=== PATIENT | female | born 1990 | race Caucasian/White ===

== ENCOUNTER 2020-08-22 09:17 | Emergency (ER) | payer BC, SELFPAY ==
--- NOTE | ~2020-08-22 | US_ITS ---
EXAMINATION: US OB <=14 wk fetus w TV EXAM DATE: 08/22/2020 10:26 INDICATION: , vaginal bleeding. 1st trimester. TECHNIQUE: Pelvic obstetrical transabdominal and transvaginal sonogram was performed by a technologi . There are multiple grayscale and Doppler images available for interpretation. There are no hudson ier studies of this gestation for comparison. FINDINGS: Uterus measures 8.2 x 3.6 x 5.0 cm. The endometrial stripe is 18 mm, upper limits of normal in size. No intrauterine or extrauterine identified. Early intrauterine or recen t spontaneous are common causes of elevated beta hCG in absence of intrauterine co nfirmation. Ultrasound can sometimes identify, but never exclude an ectopic in the setting of positive beta hCG. Follow up as warranted clinically with serial beta hCG levels or ultrasound. Both ovaries morphologically normal with low resistance Doppler flow confirmed. IMPRESSION: No intrauterine or extrauterine identified. Follow-up as indicated clinically. Reviewed, dictated and finalized at location A.
[2020-08-22 09:29] VITALS: BP 132/72; PULSE 105; RESP 20; TEMP 37.2; O2SAT 100
[2020-08-22 10:04] LABS: Basophils Percent Auto 0.4 % (0.2-1.2); Eosinophils Percent Auto 0.5 % (0-4.4); Hematocrit 41.5 % (37.0-47.0); Hemoglobin 13.9 g/dL (12.0-15.0); Immature Granulocyte Absolute 0.01 K/mm3 (0.00-0.031); Immature Granulocyte Percent A 0.1 % (0-0.5); Lymphocytes Absolute Auto 1.59 K/mm3 (0.9-3.2); Lymphocytes Percent Auto 21.1 % (18.3-44.2); Mean Corpuscular HGB Conc 33.5 g/dl (32-36); Mean Corpuscular Hemoglobin 33.7 pg (26-34); Mean Corpuscular Volume 100.5 fl (80-100); Mean Platelet Volume 10.5 fl (7.4-10.4); Monocytes Absolute Auto 0.8 K/mm3 (0.1-0.6); Monocytes Percent Auto 10.1 % (2.6-8.5); Neutrophils Absolute Auto 5.1 K/mm3 (1.3-6.7); Neutrophils Percent Auto 67.8 % (45.5-73.1); Platelet Count Result 245 k/mm3 (150-375); Red Blood Count 4.13 M/mm3 (4.2-5.4); Red Cell Distribution Width 11.5 % (11.5-14.5); White Blood Count 7.5 K/mm3 (4.5-10.0)
[2020-08-22 10:13] LABS: Anion Gap 10 mmol/L (8-16); Blood Urea Nitrogen 12 mg/dL (7-17); Calcium 9.6 mg/dL (8.4-10.2); Carbon Dioxide 24 mmol/L (22-30); Chloride 108 mmol/L (98-107); Estimated CRCL calculation 99 ml/min; Estimated Glomerular Filt Rate > 60; Glucose 90 mg/dL (65-105); Potassium 3.7 mmol/L (3.4-5.0); Sodium 142 mmol/L (137-145)
[2020-08-22 10:30] LABS: Beta HCG Quantitative 218.85 mIU/ML
--- NOTE | 2020-08-22 10:33 | ED.FEMALEGU ---
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 Patient reports she has been having some heavier bleeding since yesterday afternoon after receiving a Pap smear at her OBs office. She went to see her OB to establish care as she recently found that she is . Reports she is approximately 6 weeks gestation. No vaginal discharge/dysuria/urinary frequency/urgency. She does feel that she has been having some suprapubic cramping related to this. Related Data Home Medications Medication Instructions Recorded Confirmed prenat.vits,talia,[id number] 1 tablet PO DAILY 08/21/20 Allergies Allergy/AdvReac Type Severity Reaction Status Date / Time No Known Allergies Allergy Verified 08/22/20 09:32 Review of Systems Review of Systems: All systems reviewed & are unremarkable except as noted in HPI and below Gastrointestinal: Gastrointestinal: Denies abdominal pain, Denies nausea and Denies vomiting Genitourinary: Genitourinary: Reports abnormal vaginal bleeding, Denies hematuria, Denies dysuria, Reports pelvic pain and Denies vaginal discharge PMFSH Past Medical History Medical History (Updated 08/22/20 @ 11:51 by Shakir Aarno MD) Anemia Osteonecrosis of knees Surgical History Surgical History H/O arthroscopy of knee H/O ovarian cystectomy History of cholecystectomy [place] teeth removed Family History Family History Mother Diabetes mellitus Hypertension Grandparent Diabetes mellitus Acute myocardial infarction Hypertension Cerebrovascular accident Social History Social History Smoking status: Never smoker Alcohol intake: current Drinks per week: 5 Substance use: never Gender identity (if verbalized by the patient): Female Exam Narrative: Exam Narrative: GENERAL: Well-appearing, well-nourished, and in no acute distress. HEAD: Normocephalic, atraumatic. ENT: Mucous membranes moist. CHEST: Clear to auscultation. No respiratory distress. HEART: Regular rate and rhythm. Normal peripheral pulses. ABDOMEN: Soft, nontender, nondistended. : Normal external genitalia. Cervix without evidence of active bleeding. Cervical os has a bloody mucus-like material that likely represents passage of . No other discharge. No tenderness. EXTREMITIES: Normal range of motion. No edema. NEURO: Alert and oriented x3. PSYCH: Normal mood and affect. Course Course Emergency Course: Patient informed of results. Educated on diagnosis and treatment plan. Verbalized understanding that she needs follow-up blood work and that this may be a miscarriage but is being labeled as a spontaneous miscarriage. Dr. Ott who is on-call for Dr. Pinto has been contacted and has developed the treatment plan. Patient A+ and does not require RhoGam. Vital Signs Vital signs: Vital Signs Temperature 98.9 F 08/22/20 09:29 Pulse Rate 105 H 08/22/20 09:29 Respiratory Rate 20 08/22/20 09:29 Blood Pressure 132/72 08/22/20 09:29 Pulse Oximetry 100 08/22/20 09:29 Temperature 98.9 F 08/22/20 09:29 Pulse Rate 105 H 08/22/20 09:29 Respiratory Rate 20 08/22/20 09:29 Blood Pressure 132/72 08/22/20 09:29 Pulse Oximetry 100 08/22/20 09:29 MDM - Female Genitourinary Lab Data Result diagrams: 08/22/20 09:58 08/22/20 09:58 Labs: Lab Results 08/22/20 08/22/20 08/22/20 Range/Units 09:58 09:58 09:58 WBC 7.5 (4.5-10.0) K/mm3 RBC 4.13 L (4.2-5.4) M/mm3 Hgb 13.9 (12.0-15.0) g/dL Hct 41.5 (37.0-47.0) % MCV 100.5 H (80-100) fl MCH 3
[2020-08-22 11:17] LABS: Add Urine Microscopic? YES; Appearance Urine Clear (Clear); Bilirubin Urine Negative (Negative); Blood Urine 3+ (Negative); Color Urine Straw (Yellow); Glucose Urine UA Negative (Negative); Ketones Urine Negative (Negative); Leukocyte Esterase Ur Trace LEU/UL (Negative); Nitrate Urine Negative (Negative); Protein Urine Negative (Negative); Specific Grav Ur 1.006 (1.001-1.035); Squamous Epithelial Cell Urine Few /hpf (Few); Urobilinogen Urine Negative mg/dL (<2.0); WBC Urine 0-3 /hpf
[2020-08-22 11:59] VITALS: BP 134/88; PULSE 88; RESP 20; O2SAT 100
== END 2020-08-22 12:02 | disposition home or self-care (01) ==
PROVIDERS: Emergency Provider Emergency Medicine
DX: O20.0 Threatened abortion (principal); Z86.2 Personal history of diseases of the blood and blood-forming organs and certain disorders involving the immune mechanism; Z3A.01 Less than 8 weeks gestation of pregnancy
CPT/HCPCS: 36415; 76801; 76817; 80048; 81001; 84702; 85025; 85461; 99284

== ENCOUNTER 2020-08-24 17:01 | Outpatient (CLI) | payer BC, SELFPAY ==
[2020-08-24 17:48] LABS: Beta HCG Quantitative 32.55 mIU/ML
== END 2020-08-24 17:02 | disposition home or self-care (01) ==
PROVIDERS: Visit Provider Student in an Organized Health Care Education/Training Program
DX: O03.9 Complete or unspecified spontaneous abortion without complication (principal)
CPT/HCPCS: 36415; 84702

== ENCOUNTER 2020-09-07 15:32 | Outpatient (RCR) | payer BC, SELFPAY ==
[2020-09-07 16:20] LABS: Beta HCG Quantitative < 2.39 mIU/ML
== END 2020-12-06 23:59 | disposition home or self-care (01) ==
LOC: ANHLAB 15:32
PROVIDERS: Visit Provider Student in an Organized Health Care Education/Training Program
DX: O03.9 Complete or unspecified spontaneous abortion without complication (principal)
CPT/HCPCS: 36415; 84702

== ENCOUNTER 2020-12-28 15:26 | Outpatient (CLI) | payer BC, SELFPAY ==
[2020-12-28 16:24] LABS: Beta HCG Quantitative 43.03 mIU/ML
[2020-12-31 04:39] LABS: Progesterone 13.9 ng/mL (***)
== END 2020-12-28 15:27 | disposition home or self-care (01) ==
PROVIDERS: Visit Provider Student in an Organized Health Care Education/Training Program
DX: Z34.90 Encounter for supervision of normal pregnancy, unspecified, unspecified trimester (principal)
CPT/HCPCS: 36415; 84144; 84702

== ENCOUNTER 2020-12-30 15:24 | Outpatient (CLI) | payer BC, SELFPAY ==
[2020-12-30 16:22] LABS: Beta HCG Quantitative 86.99 mIU/ML
== END 2020-12-30 15:25 | disposition home or self-care (01) ==
LOC: ANHLAB 15:25
PROVIDERS: Visit Provider Student in an Organized Health Care Education/Training Program
DX: Z34.90 Encounter for supervision of normal pregnancy, unspecified, unspecified trimester (principal)
CPT/HCPCS: 36415; 84702

== ENCOUNTER 2021-01-07 15:38 | Outpatient (CLI) | payer BC, SELFPAY | END 2021-01-07 15:39 | disposition home or self-care (01) | LOC: ANHLAB 15:39 | PROVIDERS: Visit Provider Student in an Organized Health Care Education/Training Program | DX: O36.80X0 Pregnancy with inconclusive fetal viability, not applicable or unspecified (principal); Z3A.00 Weeks of gestation of pregnancy not specified | CPT/HCPCS: 36415; 84702 ==

== ENCOUNTER 2021-01-11 11:56 | Outpatient (CLI) | payer BC, SELFPAY ==
--- NOTE | ~2021-01-11 | US_ITS ---
EXAMINATION: US OB <=14 wk fetus w TV EXAM DATE: 01/11/2021 12:46 INDICATION: O20.0 - Threatened . 1st trimester. TECHNIQUE: Pelvic obstetrical transabdominal and transvaginal sonogram was performed by a technologi . There are multiple grayscale and Doppler images available for interpretation. There are no hudson ier studies of this gestation for comparison. FINDINGS: Uterus measures 9.0 x 4.1 x 4.5 cm. There is intrauterine gestation sac. The mean sac duane meter of 6 mm corresponds to estimated gestational age 5 weeks 1 day. There is tiny yolk sac, but can not identify pole or confirm viability at this date. There is no sonographic evidence of subcho rionic hemorrhage. Mildly heterogeneous endometrium at lower uterine segment, nonspecific. The left ovary likely has corpus luteal cyst measuring 2 cm. Right ovary unremarkable. IMPRESSION: Intrauterine gestation sac, age by ultrasound 5 weeks 1 day. Cannot confirm pole or viability at this time. Reviewed, dictated and finalized at location A.
== END 2021-01-11 11:57 | disposition home or self-care (01) ==
LOC: ANHIMG 11:59
PROVIDERS: Visit Provider Student in an Organized Health Care Education/Training Program
DX: O20.0 Threatened abortion (principal); Z3A.01 Less than 8 weeks gestation of pregnancy
CPT/HCPCS: 76801; 76817

== ENCOUNTER 2021-01-11 13:13 | Outpatient (CLI) | payer BC, SELFPAY | END 2021-01-11 13:14 | disposition home or self-care (01) | PROVIDERS: Visit Provider Student in an Organized Health Care Education/Training Program | DX: O20.0 Threatened abortion (principal) | CPT/HCPCS: 36415; 84702 ==

== ENCOUNTER → 2021-01-19 13:50 | Outpatient (CLI) | payer BC, SELFPAY ==
--- NOTE | ~2021-01-19 | US_ITS ---
EXAMINATION: US OB <=14 wk fetus w TV EXAM DATE: 01/19/2021 14:38 INDICATION: O20.0 - Threatened 1st trimester. TECHNIQUE: Pelvic obstetrical transabdominal and transvaginal sonogram was performed by a technologi . There are multiple grayscale and Doppler images available for interpretation. Comparison is made to prior examination from 01/11/2021. FINDINGS: Uterus measures 7.6 x 4.2 x 4.9 cm. There is intrauterine gestation sac containing a yolk sac, increase in size of both. Possible tiny pole along the sac measuring 2 mm corresponding to estimated gestational age 5 weeks 5 days. Cannot confirm viability at this time. There is no sonogra phic evidence of subchorionic hemorrhage. Ovaries are morphologically normal. Small free pelvic flu id. IMPRESSION: Increase in size of gestational sac, possible identification of tiny pole but senthil ot confirm viability at this time. Reviewed, dictated and finalized at location A. DRIVER IMPRESSION: Increase in size of gestational sac, possible identification of ti ny pole but cannot confirm viability at this time.
== END ==
PROVIDERS: Visit Provider Student in an Organized Health Care Education/Training Program
DX: O20.0 Threatened abortion (principal); Z3A.00 Weeks of gestation of pregnancy not specified
CPT/HCPCS: 76801; 76817

== ENCOUNTER → 2021-01-28 14:00 | Outpatient (CLI) | payer BC, SELFPAY ==
--- NOTE | ~2021-01-28 | US_ITS ---
EXAMINATION: US OB <=14 wk fetus w TV DATE: 01/28/2021 14:49 INDICATION: Threatened during first trimester of TECHNIQUE: Real-time pelvic ultrasound utilizing both a transvaginal and transabdominal probe was pe rformed. The interpreting radiologist was not present for the study. COMPARISON: None. FINDINGS: The uterus measures 8.9 x 4.6 x 5.1 cm. There is an intrauterine gestational sac. A yolk sac and fet al pole are identified. The crown rump length measures 3 mm, which correlates with an estimated gesta tional age of 6 weeks and 0 days. No discernible heart motion by M-mode Doppler. 1.6 x 1.2 x 0. 7 cm hypoechoic subchorionic hematoma along the left side of the gestational sac. The right ovary measures 2.3 x 1.1 x 2.8 cm. 1.6 cm right ovarian cyst/follicle. The left ovary measu res 2.6 x 1.5 x 2.0 cm. There is no free fluid in the pelvis. IMPRESSION: 1. Single fetus with crown-rump length of 3 mm with no discernible heart motion 9 days followin g ultrasound demonstrating a gestational sac with yolk sac but without a definitive pole. Findi ngs are suspicious but not diagnostic of failed and an early viable remains a pos sibility. 2. Gestational age by ultrasound of 6 weeks 0 day(s) +/- 4 day(s) with ultrasound estimated date of delivery (NANCY) of 09/23/2021. Reviewed, dictated and finalized at location A. 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 Single fetus with crown-rump length of 3 mm with no discernible heart motion 9 days following ultrasound demonstrating a gestational sac with yolk sa c but without a definitive pole. Findings are suspicious but not diagnost ic of failed and an early viable remains a possibility. 2. Gestational age by ultrasound of 6 weeks 0 day(s) +/- 4 day(s) with ultraso und estimated date of delivery (NANCY) of 09/23/2021.
== END ==
PROVIDERS: Visit Provider Student in an Organized Health Care Education/Training Program
DX: O20.0 Threatened abortion (principal); Z3A.01 Less than 8 weeks gestation of pregnancy
CPT/HCPCS: 76801; 76817

== ENCOUNTER 2021-02-02 09:58 | Outpatient (CLI) | payer BC, SELFPAY ==
--- NOTE | ~2021-02-02 | US_ITS ---
EXAMINATION: US OB <=14 wk fetus w TV DATE: 02/02/2021 11:19 INDICATION: Unspecified hemorrhage in first trimester . TECHNIQUE: Real-time pelvic ultrasound utilizing both a transvaginal and transabdominal probe was pe rformed. The interpreting radiologist was not present for the study. COMPARISON: 01/28/2021 FINDINGS: The uterus measures 8.4 x 5.7 x 3.8 cm. There is an intrauterine gestational sac. A yolk sac and fet al pole are identified. The crown rump length measures 3 mm, which correlates with an estimated gesta tional age of 6 weeks and 0 days. There is no evident heart motion by M-mode Doppler which now meet criteria for demise (no heart motion post ultrasound greater than 11 days prior demo nstrated a gestational sac with yolk sac). Nearly indiscernible thin weblike septations in the gestat ional sac. There is also heterogeneous decreased echogenicity within the endometrial canal surroundin g the gestational sac suspicious for subchorionic hematoma. The right ovary measures 2.4 x 1.7 x 1.2 cm. The left ovary measures 2.5 x 2.3 x 1.8 cm. Vascular ramo w identified in both ovaries on color Doppler. Trace amount of free fluid along the uterus. IMPRESSION: 1. demise with no change in a 3 mm pole with no discernible heart motion [address] ultrasound demonstrating a gestational sac with yolk sac which meets criteria for demise. 2. Likely circumferential subchorionic hematoma surrounding the gestational sac. Reviewed, dictated and finalized at location A. F SOLUTION ARCHITECT IMPRESSION: 1. demise with no change in a 3 mm pole with no discernible h eart motion 14 days post ultrasound demonstrating a gestational sac with yolk s ac which meets criteria for demise. 2. Likely circumferential subchorionic hematoma surrounding the gestational sac .
== END 2021-02-02 09:59 | disposition home or self-care (01) ==
LOC: ANHIMG 10:00
PROVIDERS: Visit Provider Student in an Organized Health Care Education/Training Program
DX: O20.9 Hemorrhage in early pregnancy, unspecified (principal)
CPT/HCPCS: 76801; 76817

== ENCOUNTER 2021-02-03 01:40 | Day surgery (SDC) | payer BC, SELFPAY ==
[2021-02-01 13:59] VITALS: BMI 24.0
--- NOTE | 2021-02-01 14:33 | PC.NURSE ---
Addendum entered by Nel Alexander RN 02/02/21 12:42: PT INFORMED OF NEW SURGERY DATE OF 02/03/21. PT TO BE HERE AT 0630 FOR SURGERY AT 0830. Original Note: Report to the Outpatient Waiting Room, entrance under the green pavilion located off [facility], at time 10:00 on date 02/09/2021. OR Time: 12:00. - You and your visitor will be asked a series of questions to screen for COVID 19 for your protection. - A mask is required within the hospital. - Only one visitor is allowed at this time. Patient visitors will be guided where to wait when not with patient. Preoperative COVID Testing Requirements:PT VACCINATED, PT TO BRING CARD AT TIME OF PROCEDURE. No COVID Test needed if: (proof is required; if not received patient will have Rapid Test prior to entry) - Patient has received COVID Vaccine at least 14 days prior to procedure date or - Patient has positive COVID test result within last 90 days of surgery date. COVID Test needed if above criteria is not met If not COVID vaccinated a COVID test must be conducted within 72 hours of surgery and patient is asked to isolate self from time of testing until procedure. You will go to the [facility] for your COVID testing. The [facility] site is located at the corner of [address] from [facility]. You will only be called if COVID results are positive and your surgeon may reschedule your elective surgery date. Patients may have clear liquids (water, carbonated beverages, clear teas, apple juice) until 3 hours prior to surgery with a maximum of 20 ounces. - No food from midnight until time of surgery - Infants may have breast milk until 4 hours before surgery, infant formula 6 hours prior to surgery. - Children will be allowed to drink immediately following surgery. If applicable, please bring a bottle or sippy cup to assist with drinking. Juice, water, soda, and popsicles are readily available. For infants on formula, please bring formula the day of surgery. Pacifiers are allowed. Take the following medications with a SIP of water the morning of surgery: N/A Medications to discontinue per physician N/A Date to take last dose N/A Please no make-up, nail chinese, hairspray, perfume, deodorant, or body powder the day of surgery. No jewelry (including any body piercings) or valuables the day of surgery, leave them at home. Please take a shower or bath the night before, or the morning of, surgery with an antibacterial soap. Wear comfortable, loose fitting clothing. Children are encouraged to wear pajamas. - Jewelry must be removed prior to entering the operating room. Rings and piercings that are not removed may be cut off. - The hospital will not accept responsibility for valuables. - Please leave all valuables, including medications, at home the day of surgery. If you are going home after surgery, a licensed lease purchase driver must drive you home. - NO public transportation without another adult. - We recommend that an adult stay with you for 24 hours following discharge. - We also recommend that you do not drive, make important decision, drink alcoholic beverages, or take any drugs that were not prescribed by your health care provider for at least 24 hours after your discharge time. For Pediatric surgeries, we recommend two adults accompany the child home (only one inside the building at this time). Follow any additional instructions given to you from your surgeon. Telephone instructions given to ALMA OSUNA and asked if any additional questions and then verbalized understanding. Patient advised to call surgeon office or pre surgery nurse liaison [phone] if any additional questions.
--- NOTE | 2021-02-02 12:13 | PM.IMHP ---
H&P: HPI History of Present Illness Date/Time: 02/02/21 12:13 Patient is a 30yo LMP 12/02/20 who presents for a scheduled suction dilation and curettage secondary to miscarriage. Patient has been followed for the past few weeks for possible abnormal . Ultrasound yesterday confirmed findings diagnostic of failure. Patient also reported onset of minimal spotting and cramping three days ago. However, in general, reports feeling well today. Chief Complaint: Missed Review of Systems Review of Systems: All systems reviewed & are unremarkable except as noted in HPI and below Constitutional: Constitutional: Reports as per HPI, Reports no additional constitutional complaints, Denies chills, Denies fever(s), Denies headache(s) and Denies night sweats Eyes: Eyes: Reports as per HPI and Reports no additional eye complaints ENT: Reports system reviewed and no additional complaints, except as documented, Reports as per HPI, Reports Normal hearing present and Denies headache(s) Cardiovascular: Cardiovascular: Reports as per HPI, Reports no additional cardiovascular complaints, Denies chest pain and Denies dyspnea Respiratory: Respiratory: Reports as per HPI, Reports no additional respiratory complaints, Denies cough and Denies dyspnea Gastrointestinal: Gastrointestinal: Reports as per HPI, Reports no additional gastrointestinal complaints, Denies abdominal pain, Denies change in bowel habits, Denies change in stool character, Denies nausea and Denies vomiting Genitourinary: Genitourinary: Reports no additional female genitourinary complaints, Reports as per HPI, Reports abnormal vaginal bleeding, Denies genital lesions, Denies hot flashes, Denies dyspareunia, Denies pelvic pain, Denies sexual dysfunction, Denies urinary incontinence, Denies vaginal discharge, Denies vaginal dryness and Denies vaginal odor Musculoskeletal: Musculoskeletal: Reports no additional musculoskeletal complaints and Reports as per HPI Integumentary/Breasts: Skin/Breast: Reports system reviewed and no additional complaints, except as docu, Reports as per HPI, Denies breast pain and Denies nipple discharge Neurologic: Reports system reviewed and no additional complaints, except as documented, Reports as per HPI, Reports Normal hearing present and Denies headache(s) Psychiatric: Psychiatric: Reports no additional psychiatric complaints, Reports as per HPI, Denies anxiety and Denies depression Endocrine: Endocrine: Reports no additional endocrine complaints and Reports as per HPI Hematologic/Lymphatic: Hematologic/Lymphatic: Reports no additional hematologic/lymphatic complaints and Reports as per HPI Allergic/Immunologic: Allergic/Immunologic: Reports no additional allergic/immunologic complaints and Reports as per HPI PMFSH Past Medical History Medical History Anemia Miscarriage Osteonecrosis of knees Surgical History Surgical History H/O arthroscopy of knee H/O ovarian cystectomy History of cholecystectomy [place] teeth removed Family History Family History Mother Diabetes mellitus Hypertension Grandparent Diabetes mellitus Acute myocardial infarction Hypertension Cerebrovascular accident Social History Social History Years smoked: 5 Smoking status: Never smoker Alcohol intake: current Drinks per week: 5 Substance use: never Last use: 7 YEARS AGO Living arrangements: with family Gender identity (if verbalized by the patient): Female Spiritual care concerns: No Meds Home Medications and Allergies Home Medications Medication Instructions Recorded Confirmed Type No Home Medications 02/01/21 02/03/21 History Allergies Allergy/AdvReac Type Severity Reaction Statu
[2021-02-03] MEDS: ACETAMINOPHEN 500 MG TABLET 1000 MG PO (06:57)
[2021-02-03 07:00] VITALS: BP 103/59; PULSE 87; RESP 16; TEMP 37.3; O2SAT 100
[2021-02-03] MEDS: LACTATED RINGERS 1,000 ML 30 ML IV CONT (07:15)
[2021-02-03] MEDS: DOXYCYCLINE IV 100 MG in SODIUM CHLORIDE 0.9% IV 100 ML IVPB (07:45)
--- NOTE | 2021-02-03 07:49 | P.PNAN_ITS ---
Anes - Initial Pre Proc Eval Procedure: Operation Date: 02/03/21 08:30 Proposed Procedures p Suction Dilatation and Curettage - Rula Pinto MD Date/Time: 02/03/21 07:49 Surgeon: Rula Pinto MD Pre Op Diagnosis: missed AB Patient Data Age: 30 Gender: F Height: 1.6 m Weight: 63.2 kg Last Vital Signs Temp 37.3 C 02/03/21 07:00 Pulse 87 02/03/21 07:00 Resp 16 02/03/21 07:00 BP 103/59 L 02/03/21 07:00 Pulse Ox 100 02/03/21 07:00 Allergies Allergy/AdvReac Type Severity Reaction Status Date / Time No Known Allergies Allergy Verified 02/03/21 07:36 Home Medications Medication Instructions Recorded Confirmed Type No Home Medications 02/01/21 02/03/21 History Patient hx anesthesia problems: none Family hx anesthesia problems: none Results Review: All pre-operative results and documents have been reviewed as part of the pre-operative evaluation. [facility] Past Medical History Medical History Anemia Miscarriage Osteonecrosis of knees Surgical History Surgical History H/O arthroscopy of knee H/O ovarian cystectomy History of cholecystectomy [place] teeth removed Family History Family History Mother Diabetes mellitus Hypertension Grandparent Diabetes mellitus Acute myocardial infarction Hypertension Cerebrovascular accident Social History Social History Years smoked: 5 Smoking status: Never smoker Alcohol intake: current Drinks per week: 5 Substance use: never Last use: 7 YEARS AGO Living arrangements: with family Gender identity (if verbalized by the patient): Female Spiritual care concerns: No Anes - Eval Final PreProcedure Day of Procedure 02/03/21 07:49 Patient weight: normal Heart: regular rate and rhythm Lungs: clear to auscultation Airway: Mallampati scale class II Neurological: alert and oriented Last oral intake: >/= 8 hours ASA classification: II Emergent: no Anesthetic plan: proceed Anesthesia type and monitoring: general GIVS and standard monitoring Results Review: All pre-operative results and documents have been reviewed as part of the pre-operative evaluation. Informed Consent: The patient's anesthetic plan and its attendant risks and benefits were discussed with the patient/family/POA. Questions were solicited and answers provided to the satisfaction of the patient/family/POA.
--- NOTE | 2021-02-03 08:18 | WPDHPUPDATE1 ---
History and Physical Update Update Date/Time: 02/03/21 08:18 History and Physical has been reviewed, including an updated exam of the patient. There are NO changes in the patient's condition. Risks, benefits, and alternatives have been discussed and questions answered. Patient agrees to proceed with procedure.
[2021-02-03] MEDS: KETOROLAC 30 MG/ML VIAL (*BKC) IV PUSH (08:39)
[2021-02-03 08:48] VITALS: BP 105/69; PULSE 87; RESP 16; O2SAT 96
--- NOTE | 2021-02-03 08:51 | W.PM.PROC2 ---
Procedure Note - Detailed Date of Procedure 02/03/21 Pre-op Diagnosis missed AB Post-op Diagnosis same Procedure Performed Suction dilation and curettage Surgeon Rula Pinto MD Anesthesia MAC Findings moderate amount of products of conception Description of Procedure The patient was taken to the operating room where she self transferred to the operating room table. Patient was placed in dorsal supine position. Anesthesia was administered and found to be adequate. The patient was repositioned in dorsal lithotomy position with the use of Ye stirrups. The patient was prepped and draped in the usual sterile fashion. A bivalve speculum was inserted into vagina. The cervix was well visualized. The anterior lip of the cervix was grasped with a single-tooth tenaculum. A paracervical block was performed with 1% lidocaine. 5 cc of lidocaine was administered on both sides for a total of 10 cc. The cervix was then serially dilated to accommodate a size 7 rigid curette. The curette was introduced into the endometrial cavity and connected to the suction tubing. The suction aspirator was then activated and the curette was gently rotated clearing the cavity of all products of conception. Three passes with the rigid curette were made and all quadrants were explored. A gritty texture was noted and the procedure was deemed complete. The tenaculum was removed. No bleeding was noted. The vagina was then cleansed and dried and the speculum was removed. The remainder the patient was cleansed and dried. She was taken out of the dorsal lithotomy position and awakened from anesthesia without difficulty. She was transferred to recovery room in stable condition. All sponge and instrument counts were correct at the end of the procedure. The evacuated uterine contents were inspected and prepared to be sent to pathology for chromosome analysis. The patient tolerated the procedure well. Estimated Blood Loss 5 IV Fluids 300 Drains No Packing No Pathology yes (products of conception) Complications No immediate complications Condition stable Disposition same day
[2021-02-03 09:15] VITALS: BP 120/74; PULSE 79; RESP 16
[2021-02-03 09:30] VITALS: BP 99/55; PULSE 70; RESP 16
--- NOTE | 2021-03-03 15:01 | SUR.PREOP ---
patient had called to report IV site pain and swelling to left ac, this RN called patient to recommend contacting primary to have it looked at and to take tylenol as indicated on the instruction box. States no primary provider at this time but was working toward seeing one soon.
== END 2021-02-03 09:35 | disposition home or self-care (01) ==
PROVIDERS: Visit Provider Student in an Organized Health Care Education/Training Program
PROC: (CPT 59820; principal; 2021-02-03 08:30)
DX: O02.1 Missed abortion (principal); D64.9 Anemia, unspecified
CPT/HCPCS: 59820; 36415; 85461; 88305; A9270; J1885; J2250; J2704; J3010; J7120

== ENCOUNTER → 2021-05-25 14:02 | Outpatient (CLI) | payer BC, SELFPAY ==
--- NOTE | ~2021-05-25 | US_ITS ---
EXAMINATION: US OB <= 14 weeks fetus DATE: 05/25/2021 14:21 INDICATION: Gestational dating. TECHNIQUE: Real-time transabdominal obstetric ultrasound. FINDINGS: No prior studies for comparison. The uterus measures 10.1 x 8.4 x 8.1 cm. There is an intrauterine gestational sac, with pole id entified. The crown rump length measures 5.79 cm, which correlates with a estimated gestational age of 12 weeks 2 days. heart tones are identified measuring 172. Ovaries are not visualized. IMPRESSION: 1. SL IUP with an EGA of 12 weeks, 2 days (EDC by current ultrasound of 12/05/2021). Reviewed, dictated and finalized at location B. IMPRESSION: 1. SL IUP with an EGA of 12 weeks, 2 days (EDC by current ultrasound of 12/06/19 22).
== END ==
PROVIDERS: Visit Provider Student in an Organized Health Care Education/Training Program
DX: Z36.89 Encounter for other specified antenatal screening (principal); Z3A.12 12 weeks gestation of pregnancy
CPT/HCPCS: 76801

== ENCOUNTER 2021-12-06 09:50 | Outpatient (RCR) | payer BC, SELFPAY ==
--- NOTE | ~2021-12-06 | US_ITS ---
EXAMINATION: US OB limited DATE: 12/06/2021 11:21 INDICATION: Amniotic fluid index assessment, term TECHNIQUE: Real-time ultrasound of the pelvis was performed. The interpreting radiologist was not pre sent for the study. COMPARISON: None. FINDINGS: There is a single living fetus in vertex presentation. The placenta is anterior. card iac activity and movement are noted. heart rate is 150 beats per minute (bpm). The amniot ic fluid index is 10.5 cm which is normal (normal range: 7.1 cm to 21.4 cm). IMPRESSION: 1. Single living fetus in vertex presentation. 2. Normal amniotic fluid index. Reviewed, dictated and finalized at location A.
--- NOTE | 2021-12-06 11:41 | PC.NURSE ---
Dr Pinto notified of questionable decels, tracing reviewed from at home. Orders for IOL today. Patient may go home to get her bags if needed or stay.
[2021-12-06 11:50] VITALS: BP 108/67; PULSE 86
== END 2022-03-06 23:59 | disposition home or self-care (01) ==
LOC: ANHOBOP 09:50
PROVIDERS: PCP Family Medicine; Visit Provider Student in an Organized Health Care Education/Training Program
DX: O48.0 Post-term pregnancy (principal); Z3A.40 40 weeks gestation of pregnancy
CPT/HCPCS: 59025; 76815

== ENCOUNTER 2021-12-06 14:30 | Inpatient (IN) | payer BC, SELFPAY ==
[2021-12-06] VITALS (29 sets, daily range): BP systolic 111–140; BP diastolic 64–89; PULSE 72–99; TEMP 37.3; BMI 30.3
[2021-12-06 15:42] LABS: Basophils Percent Auto 0.3 % (0.2-1.2); Eosinophils Absolute Auto 0.1 K/mm3 (0-0.3); Eosinophils Percent Auto 0.5 % (0-4.4); Hematocrit 37.1 % (37.0-47.0); Hemoglobin 12.4 g/dL (12.0-15.0); Immature Granulocyte Absolute 0.05 K/mm3 (0.00-0.031); Immature Granulocyte Percent A 0.5 % (0-0.5); Lymphocytes Absolute Auto 1.68 K/mm3 (0.9-3.2); Lymphocytes Percent Auto 18.4 % (18.3-44.2); Mean Corpuscular HGB Conc 33.4 g/dl (32-36); Mean Corpuscular Hemoglobin 34.2 pg (26-34); Mean Corpuscular Volume 102.2 fl (80-100); Mean Platelet Volume 11.6 fl (7.4-10.4); Monocytes Absolute Auto 0.7 K/mm3 (0.1-0.6); Monocytes Percent Auto 7.6 % (2.6-8.5); Neutrophils Absolute Auto 6.6 K/mm3 (1.3-6.7); Neutrophils Percent Auto 72.7 % (45.5-73.1); Platelet Count Result 195 k/mm3 (150-375); Red Blood Count 3.63 M/mm3 (4.2-5.4); Red Cell Distribution Width 13.6 % (11.5-14.5); White Blood Count 9.1 K/mm3 (4.5-10.0)
[2021-12-06] MEDS: LACTATED RINGERS 1,000 ML 125 ML IV CONT (15:43)
[2021-12-06] MEDS: OXYTOCIN 30 UNITS/NS 500 ML 30 UNITS/500 ML BAG IV CONT (15:44)
--- NOTE | 2021-12-06 17:00 | PM.IMHP ---
H&P: HPI History of Present Illness Date/Time: 12/06/21 17:00 Chief Complaint: Induction of labor Narrative: Patient is a 31-year-old G4 P 102 1 LMP 03/01/2021 currently 40 weeks gestation with NANCY 12/06/2021. Patient is dated by LMP consistent with outside ultrasound 04/16/2021 by JACLYN. Patient presented to Labor and delivery today for testing. During NST, to possible deceleration were noted. Decision made to admit patient to Labor and delivery for induction of labor. In general, patient reports feeling well. Denies any vaginal bleeding, leakage of fluid, or contractions. Reports good movement. Review of Systems Review of Systems: All systems reviewed & are unremarkable except as noted in HPI and below Constitutional: Constitutional: Reports as per HPI and Reports no additional constitutional complaints Eyes: Eyes: Reports as per HPI and Reports no additional eye complaints ENT: Reports system reviewed and no additional complaints, except as documented and Reports as per HPI Cardiovascular: Cardiovascular: Reports as per HPI and Reports no additional cardiovascular complaints Respiratory: Respiratory: Reports as per HPI and Reports no additional respiratory complaints Gastrointestinal: Gastrointestinal: Reports as per HPI and Reports no additional gastrointestinal complaints Genitourinary: Genitourinary: Reports no additional female genitourinary complaints and Reports as per HPI Musculoskeletal: Musculoskeletal: Reports no additional musculoskeletal complaints and Reports as per HPI Integumentary/Breasts: Skin/Breast: Reports system reviewed and no additional complaints, except as docu and Reports as per HPI Neurologic: Reports system reviewed and no additional complaints, except as documented and Reports as per HPI Psychiatric: Psychiatric: Reports no additional psychiatric complaints and Reports as per HPI Endocrine: Endocrine: Reports no additional endocrine complaints and Reports as per HPI Hematologic/Lymphatic: Hematologic/Lymphatic: Reports no additional hematologic/lymphatic complaints and Reports as per HPI Allergic/Immunologic: Allergic/Immunologic: Reports no additional allergic/immunologic complaints and Reports as per HPI PMF Past Medical History Medical History Anemia Hypothyroidism Incomplete miscarriage D&C 02/03/21 Miscarriage x1 Missed ab Osteonecrosis of knees Vitamin D deficiency Surgical History Surgical History H/O arthroscopy of knee H/O ovarian cystectomy History of cholecystectomy History of dilation and curettage 02/03/21 for missed [place] teeth removed Family History Family History Mother Diabetes mellitus Hypertension Cataract Grandparent Diabetes mellitus Acute myocardial infarction Hypertension Cerebrovascular accident Prostate carcinoma Dementia Acute rheumatic arthritis Sibling Diabetes mellitus Bipolar 1 disorder Social History Social History Smoking status: Never smoker Second hand tobacco smoke exposure: No Alcohol intake: current Drinks per week: 5 Substance use: never Last use: 7 YEARS AGO Gender identity (if verbalized by the patient): Female Sexual Orientation (if Verbalized by the Patient): Straight or Heterosexual Spiritual care concerns: No Meds Home Medications and Allergies Home Medications Medication Instructions Recorded Confirmed Type prenat.vits,talia,rmw-pbnv-csxry 1 tablet PO DAILY 04/21/21 12/06/21 History levothyroxine 75 mcg capsule 75 mcg PO DAILY #90 caps 10/14/21 12/06/21 Rx Allergies Allergy/AdvReac Type Severity Reaction Status Date / Time qagan tayagungin Allergy Rash Verified 12/06/21 15:27 Vital Signs Vital Signs - 24 hr 12/06/21 15:07 12/06/21 1
--- NOTE | 2021-12-06 17:07 | WPDHPUPDATE1 ---
History and Physical Update Update Date/Time: 12/06/21 17:07 History and Physical has been reviewed, including an updated exam of the patient. There are NO changes in the patient's condition. Risks, benefits, and alternatives have been discussed and questions answered. Patient agrees to proceed with procedure.
--- NOTE | 2021-12-06 19:30 | WPDANESEPP ---
Anes - Eval Pre Procedure Procedure: labor epidural Date/Time: 12/06/21 19:30 Surgeon: jyoti Preop Diagnosis: pain during labor Pre Op Diagnosis: Induction of Labor Patient Data Age: 31 Gender: F Height: 1.61 m Weight: 79 kg Last Vital Signs Temp 37.3 C 12/06/21 17:00 Pulse 88 12/06/21 19:15 BP 123/77 12/06/21 19:15 O2 Del Method Room Air 12/06/21 15:07 Allergies Allergy/AdvReac Type Severity Reaction Status Date / Time igiugig Allergy Rash Verified 12/06/21 15:27 Home Medications Medication Instructions Recorded Confirmed Type prenat.vits,talia,aoc-iane-cgfqy 1 tablet PO DAILY 04/21/21 12/06/21 History levothyroxine 75 mcg capsule 75 mcg PO DAILY #90 caps 10/14/21 12/06/21 Rx Laboratory Tests 12/06/21 12/06/21 12/06/21 15:25 15:25 15:25 WBC 9.1 K/mm3 K/mm3 (4.5-10.0) RBC 3.63 M/mm3 L M/mm3 (4.2-5.4) Hgb 12.4 g/dL g/dL (12.0-15.0) Hct 37.1 % % (37.0-47.0) MCV 102.2 fl H fl (80-100) MCH 34.2 pg H pg (26-34) MCHC 33.4 g/dl g/dl (32-36) RDW 13.6 % % (11.5-14.5) Plt Count 195 k/mm3 k/mm3 (150-375) MPV 11.6 fl H fl (7.4-10.4) Immature Gran % (Auto) 0.5 % % (0-0.5) Neut % (Auto) 72.7 % % (45.5-73.1) Lymph % (Auto) 18.4 % % (18.3-44.2) [place] % (Auto) 7.6 % % (2.6-8.5) Eos % (Auto) 0.5 % % (0-4.4) Baso % (Auto) 0.3 % % (0.2-1.2) Lymph # (Auto) 1.68 K/mm3 K/mm3 (0.9-3.2) [place] # (Auto) 0.7 K/mm3 H K/mm3 (0.1-0.6) Eos # (Auto) 0.1 K/mm3 K/mm3 (0-0.3) Baso # (Auto) 0.0 K/mm3 K/mm3 (0.0-0.1) Abs Immat Gran (auto) 0.05 K/mm3 H K/mm3 (0.00-0.031) Absolute Neuts (auto) 6.6 K/mm3 K/mm3 (1.3-6.7) Absolute Nucleated RBC 0.0 K/mm3 K/mm3 (0.0-0.012) Nucleated RBC % 0.0 % % (0.0-0.2) RPR Pending Blood Type A Positive Antibody Screen Negative Patient hx anesthesia problems: none Family hx anesthesia problems: none Results Review: All pre-operative results and documents have been reviewed as part of the pre-operative evaluation. [facility] Past Medical History Medical History Anemia Hypothyroidism Incomplete miscarriage D&C 02/03/21 Miscarriage x1 Missed ab Osteonecrosis of knees Vitamin D deficiency Surgical History Surgical History H/O arthroscopy of knee H/O ovarian cystectomy History of cholecystectomy History of dilation and curettage 02/03/21 for missed [place] teeth removed Family History Family History Mother Diabetes mellitus Hypertension Cataract Grandparent Diabetes mellitus Acute myocardial infarction Hypertension Cerebrovascular accident Prostate carcinoma Dementia Acute rheumatic arthritis Sibling Diabetes mellitus Bipolar 1 disorder Social History Social History Smoking status: Never smoker Second hand tobacco smoke exposure: No Alcohol intake: current Drinks per week: 5 Substance use: never Last use: 7 YEARS AGO Gender identity (if verbalized by the patient): Female Sexual Orientation (if Verbalized by the Patient): Straight or Heterosexual Spiritual care concerns: No Exam Day of Procedure 12/06/21 19:30
--- NOTE | 2021-12-06 23:08 | PM.OBPNLAB ---
Pain Control Date/time seen: 12/06/21 23:08 Patient doing well. Reports feeling contractions. SVE /-2. EFM category 1. [place] shows contractions q1-2 mins. Continue pitocin.
[2021-12-07] VITALS (206 sets, daily range): BP systolic 73–134; BP diastolic 51–95; PULSE 63–171; RESP 16; TEMP 36.3–37.8; O2SAT 96–100
[2021-12-07] MEDS: LACTATED RINGERS 1,000 ML 125 ML IV CONT ×3 (01:20→11:19)
[2021-12-07 07:08] LABS: Rapid Plasma Reagin Non-Reactive (NonReactive)
[2021-12-07] MEDS: SODIUM CHLORIDE 0.9% IV 300 ML 600 ML I-UTERINE (09:31)
--- NOTE | 2021-12-07 09:45 | PM.OBPNLAB ---
Pain Control Date/time seen: 12/07/21 09:45 Patient doing well. SVE 7-8cm/90/-2. Variable decelerations noted on EFM. Amnioinfusion in process. [place] shows contractions q2 mins. Anticipate .
[2021-12-07] MEDS: AMPICILLIN 2 GM/NS 100 ML 2 GM/100 ML BAG IVPB (11:18)
[2021-12-07] MEDS: OXYTOCIN 30 UNITS/NS 500 ML 30 UNITS/500 ML BAG 125 UNITS IV CONT (12:25)
--- NOTE | 2021-12-07 12:41 | P.PCNOB_ITS ---
OB - Delivery Note Procedure Delivery date: 12/07/21 Procedure: The patient is 31-year-old now who presented to labor and delivery on the morning of 12/06/2021 at 40 weeks gestation for testing. During testing, possible decelerations were noted on NST. Decision made to proceed with induction of labor. Induction of labor was started with Pitocin. Pitocin was slowly titrated throughout the early afternoon. Artificial rupture of membranes was performed at 4:52 p.m. Clear amniotic fluid was noted. Pitocin was continuously titrated. Intermittent variable and late decelerations were noted on EFM. Pitocin was intermittently started and stopped to allow tracing to recover. Patient continued to make progressive cervical change. Patient became uncomfortable and requested an epidural for pain management which was placed without difficulty. An IUPC was placed for enhanced monitoring. Recurrent variable decelerations were noted on EFM. Amnioinfusion was started. Decelerations subsided. Patient progressed to fully dilated at 11:08 a.m. Patient was encouraged to push and found be pushing well. She was prepped for delivery. At 11:57 a.m., patient delivered infant head atraumatically and without difficulty in [place]LENA presentation. Occiput restituted to maternal left side. A nuchal cord x2 was noted, however, unable to be reduced. With subsequent push, the infant's neck, shoulders, and rest of body delivered without difficulty. Nuchal cord was reduced. Infant was weakly crying. 's nose and mouth were suctioned with bulb suction. was placed on maternal abdomen where care was assumed by awaiting nursing staff. D elayed cord clamping was performed for approximately 60 seconds. Cord was clamped and cut. A segment of cord was collected for cord gases. Cord blood was collected. The placenta was delivered spontaneously and intact. Uterine fundus was noted to be firm with massage. On inspection, bilateral labial lacerations as well as a right periurethral laceration was noted. The right periurethral laceration as well as the right labial laceration were repaired with 3-0 Vicryl in the usual fashion. Left labial laceration was superficial and did not require repair. Excellent hemostasis was noted. Estimated blood loss for entire delivery was 200 cc. The was a live-born female , Apgars 5 and 8, weighing 7 lbs. 3 oz. Both mother and baby doing well at end of delivery. Events: Other (Induction of labor) Intrapartal Events: Decelerations Induction method: Per Pitocin Protocol Delivery augmentation: Rupture of Membranes Delivery monitor: External FHT, External Uterine and Internal Uterine Route of delivery: Laceration Description: Periurethral (right) and Labial (bilateral, however, left side did not require repair) Delivery repair: vicryl (3-0 vicryl) Specimen: Yes (cord blood and cord gases) Quantitative Blood Loss (ml): 200 Anesthesia type: Epidural Disposition: Floor Complications: No immediate complications [place] Baby Date of : 12/07/21 Time of : 11:57 Weeks of gestation at delivery: 40 (40.1) Infant gender: Female Weight (pounds): 7 Weight (ounces): 3 presentation: vertex position: Left Occiput Anterior Placenta delivery description: Spontaneous Cord Vessel Description: 3 Vessels, Nuchal Cord (x2) and Delayed Cord Clamping (x60s) score one minute: 5 score five minutes: 8 AMG Delivery Billing Delivery Delivery: Delivery Charge
[2021-12-07] MEDS: IBUPROFEN 600 MG TABLET PO (15:02)
--- NOTE | 2021-12-07 19:08 | OBPPTRN ---
1432 Patient transferred to post room #281 via W/C. Support person present. Oriented to unit, room, information board, rooming in, admission packet and security measures. Patient verbalizes understanding.
[2021-12-07] MEDS: DOCUSATE SODIUM 100 MG CAPSULE PO (19:15)
[2021-12-08 00:35] VITALS: BP 109/70; PULSE 86; RESP 16; TEMP 36.8; O2SAT 100
[2021-12-08] MEDS: IBUPROFEN 600 MG TABLET PO ×2 (00:45→14:53)
[2021-12-08 05:00] VITALS: BP 110/70; PULSE 90; RESP 16; TEMP 36.7; O2SAT 99
[2021-12-08 05:45] LABS: Hematocrit 31.9 % (37.0-47.0); Hemoglobin 10.5 g/dL (12.0-15.0)
[2021-12-08 07:05] VITALS: BP 126/71; PULSE 94; RESP 18; TEMP 36.3; O2SAT 99
[2021-12-08] MEDS: MULTIVIT/MIN/PREN/FOL AC/IRON TABLET 1 TAB PO (09:05)
[2021-12-08] MEDS: DOCUSATE SODIUM 100 MG CAPSULE PO (09:05)
--- NOTE | 2021-12-08 13:28 | PM.OBPNVD ---
OB - PN: Subj Subjective Date/time seen: 12/08/21 0815 Patient doing well. Denies any significant pain or cramping. Minimal lochia. Ambulating without difficulty. Voiding well. OB - PN: Obj Data Labs CBC & Chem 7: 12/08/21 04:01 Labs: Laboratory Results - last 24 hr 12/08/21 04:01 Hgb 10.5 L Hct 31.9 L OB - PN A/P Assessment and Plan (1) Normal spontaneous vaginal delivery: Code(s): O80 - Encounter for full-term uncomplicated delivery Status: Acute Assessment and Plan: PPD#1 doing well continue routine care dc home today in stable condition emergency precautions reviewed f/u in office in 4-6 weeks Time Spent With Patient Time: Total time spent is greater than 50% in coordination of care (as documented) at patient's floor/unit and/or counseling patient: Exam Const: General: cooperative, healthy appearing, comfortable and no acute distress GI: Inspection: non-distended GI Palp: Yes Soft to palpation and No Tenderness to palpation present (GI) Other: fundus firm below umbilicus Extrem: Right lower extremity: no edema Left lower extremity: no edema Other: no calf tenderness
--- NOTE | 2021-12-08 13:40 | PM.OBDSVD ---
DS: Admitting Diagnosis Discharge Date 12/08/21 Admitting Diagnosis IUP at 40w gestation DS: Discharge Diagnosis Discharge Diagnosis (1) Normal spontaneous vaginal delivery: Code(s): O80 - Encounter for full-term uncomplicated delivery Status: Acute OB - DS: Summary OB Procedures : None OB Procedures Intrapartum: Spontaneous Vag Delivery OB Procedures: : None Time Spent with Patient Time attestation: Total time spent providing and/or coordinating discharge services: DS: Data Data Completed and Pending Labs on day of discharge: Labs from last 24 hours 12/08/21 04:01 Hgb 10.5 L Hct 31.9 L Discharge Plan Discharge Attending physician on discharge: Rula Pinto Discharging Clinician: Rula Pinto Anticipated Discharge Date/Time: 12/08/21 13:40 Patient Disposition: Home, Self-Care Activity: as tolerated and pelvic rest Diet: regular Discharge Instructions: Call office ([phone]) to schedule a visit in 4-6 weeks. You may take Ibuprofen 600mg every 6 hours as needed for pain. Pain medication may make you constipated. It may be helpful to take an [id number] stool softener, such as Colace and/or Senokot, along with the pain medication to help lessen constipation. Call office or go to ED for pain not controlled with medication, headache, chest pain, shortness of breath, fever, chills, persistent nausea or vomiting, severe abdominal pain, heavy vaginal bleeding >2 pads/hour, foul vaginal discharge or odor, or problems with your breasts. Patient Instructions: Antibiotic Form Stand Alone Forms: General Discharge Information Follow-up/Referrals: Rula Pinto MD [Physician] - Discharge Medications: Continued prenat.vits,talia,mzc-tsao-xsxdy Tablet 1 tablet PO DAILY levothyroxine 75 mcg capsule 75 mcg PO DAILY Qty: 90 0RF Date of admission: 12/06/21 14:30 Primary Care Provider: Krystian Cunninghma Admitting Provider: Rula Pinto Attending physician on admission: Rula Pinto Condition: Stable
--- NOTE | 2021-12-08 20:45 | PC.NURSE ---
1500 Patient viewed the discharge video Mother & Baby Care, The First Two Weeks . Patient was given the opportunity and encouraged to ask questions. Patient verbalized understanding of information shared and has been given the mother/baby guide for home reference.
[2021-12-09 10:53] VITALS: BP 123/76; PULSE 77; RESP 16; TEMP 36.8; O2SAT 100
== END 2021-12-08 18:55 | disposition home or self-care (01) | DRG 807 ==
LOC: ANHLDR 14:31 → ANHOB2 12-07 14:37
PROVIDERS: Admitting Provider Student in an Organized Health Care Education/Training Program; PCP Family Medicine; Visit Provider Student in an Organized Health Care Education/Training Program
DX: O76 Abnormality in fetal heart rate and rhythm complicating labor and delivery (principal); Z37.0 Single live birth; O99.284 Endocrine, nutritional and metabolic diseases complicating childbirth; E03.9 Hypothyroidism, unspecified; O69.1XX0 Labor and delivery complicated by cord around neck, with compression, not applicable or unspecified; O71.82 Other specified trauma to perineum and vulva; Z3A.40 40 weeks gestation of pregnancy
CPT/HCPCS: 36415; 85014; 85018; 85025; 86592; 86850; 86900; 86901; A9270; J0290; J2590; J2795; J7030; J7120

== ENCOUNTER 2021-12-30 10:29 | Outpatient (CLI) | payer BC, SELFPAY ==
--- NOTE | ~2021-12-30 | XR_ITS ---
EXAMINATION: XR knee RT 3V DATE: 12/30/2021 11:12 INDICATION: Right knee pain TECHNIQUE: Three views of the right knee were obtained. COMPARISON: None. FINDINGS: Alignment is normal. No fracture or osteochondral lesion. Joint spaces are normal with no e rosions. There is a small knee joint effusion. Soft tissues are unremarkable. IMPRESSION: 1. Small knee joint effusion without acute osseous abnormality. Reviewed, dictated and finalized at location B.
--- NOTE | ~2021-12-30 | XR_ITS ---
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 COMPARISON: None. FINDINGS: Alignment is normal. No fracture or osteochondral lesion. There is mild irregularity of the medial femoral condyle abutting the articular surface. There is a small knee joint effusion. Soft ti ssues are unremarkable. IMPRESSION: 1. Mild irregularity of the medial femoral condyle abutting the articular surface, likely reflecting prior injury. Reviewed, dictated and finalized at location B. IMPRESSION: 1. Mild irregularity of the medial femoral condyle abutting the articular surfa ce, likely reflecting prior injury.
== END 2021-12-30 10:30 | disposition home or self-care (01) ==
PROVIDERS: PCP Family Medicine; Visit Provider Nurse Practitioner Family
DX: M25.562 Pain in left knee (principal); M25.561 Pain in right knee; M25.461 Effusion, right knee
CPT/HCPCS: 73562

== ENCOUNTER 2022-01-13 06:46 | Outpatient (CLI) | payer BC, SELFPAY ==
--- NOTE | ~2022-01-13 | MR_ITS ---
EXAMINATION: MR IAC wo/w con DATE: 01/13/2022 07:48 INDICATION: Left-sided tinnitus. TECHNIQUE: Magnetic resonance imaging (MRI) of the brain, brainstem, and internal auditory canals was performed without and with 14 mL MultiHance intravenous contrast. COMPARISON: None. FINDINGS: There is no intracranial hemorrhage, acute infarction, or abnormal intracranial mass lesion . The ventricles are normal in size. The internal auditory canals and inner and middle ears are jayjay l. The mastoid air cells are normal. There is a mucous retention cyst in left maxillary sinus. The or bits are normal. IMPRESSION: 1. Normal brain. Reviewed, dictated and finalized at location A. IMPRESSION: 1. Normal brain.
== END 2022-01-13 06:47 | disposition home or self-care (01) ==
PROVIDERS: PCP Family Medicine; Visit Provider Nurse Practitioner Family
DX: H93.19 Tinnitus, unspecified ear (principal)
CPT/HCPCS: 70553; A9577

== ENCOUNTER 2023-08-31 06:02 | Inpatient (IN) | payer BC, SELFPAY ==
[2023-08-31] VITALS (141 sets, daily range): BP systolic 97–140; BP diastolic 56–99; PULSE 66–283; RESP 16–18; TEMP 36.6–36.9; O2SAT 91–100; BMI 32.5
--- NOTE | 2023-08-31 06:36 | LDADM ---
This patient, Lisa Dior, was admitted to Labor/Delivery/Recovery 103 on 08/31/23 at 06:02. Plans for labor, pain management and were discussed with patient. Patient/family oriented to hospital policies and general routines including ID bracelet, bed and alarms, visiting hours, pain management, procedures, bathroom and other care routines, personal items, smoking policy, room service/diet and guest tray routines, infant security routines, and visiting hours. Patient/Family are encouraged to report perceived risks to care and to ask questions if they do not understand what they are told or what they should do. See OBIX for further documentation.
[2023-08-31 06:41] LABS: Basophils Percent Auto 0.4 % (0.2-1.2); Eosinophils Absolute Auto 0.1 K/mm3 (0-0.3); Eosinophils Percent Auto 0.8 % (0-4.4); Hematocrit 35.9 % (37.0-47.0); Hemoglobin 12.1 g/dL (12.0-15.0); Immature Granulocyte Absolute 0.03 K/mm3 (0.00-0.031); Immature Granulocyte Percent A 0.4 % (0-0.5); Lymphocytes Absolute Auto 2.16 K/mm3 (0.9-3.2); Mean Corpuscular HGB Conc 33.7 g/dl (32-36); Mean Corpuscular Hemoglobin 32.5 pg (26-34); Mean Corpuscular Volume 96.5 fl (80-100); Mean Platelet Volume 11.7 fl (7.4-10.4); Monocytes Absolute Auto 0.4 K/mm3 (0.1-0.6); Monocytes Percent Auto 4.5 % (2.6-8.5); Neutrophils Absolute Auto 5.1 K/mm3 (1.3-6.7); Neutrophils Percent Auto 65.9 % (45.5-73.1); Platelet Count Result 201 k/mm3 (150-375); Red Blood Count 3.72 M/mm3 (4.2-5.4); Red Cell Distribution Width 13.5 % (11.5-14.5); White Blood Count 7.7 K/mm3 (4.5-10.0)
[2023-08-31] MEDS: OXYTOCIN 30 UNITS/NS 500 ML 30 UNITS/500 ML BAG IV CONT (07:05)
[2023-08-31] MEDS: LACTATED RINGERS 1,000 ML 125 ML IV CONT ×2 (07:05→17:05)
[2023-08-31 07:36] LABS: HIV 1/2 Ab P24 Ag Result Negative (Negative)
[2023-08-31 11:37] LABS: Rapid Plasma Reagin Non-Reactive (NonReactive)
--- NOTE | 2023-08-31 12:12 | WPDOBADMIT ---
Obstetrics - Admit Note Admission Note: Late entry from 0725 on 08/31/23 record reviewed. Additions to the history and/or subsequent changes in the physical findings follow. 33 y/o at 39 2/7 weeks here for scheduled induction of labor. GBS neg. AVSS NST reactive TOCO: irregular contractions ABD soft, nontender, gravid, vertex EXT nontender Cervix 2-3/50/-2. AROM with clear fluid. Vertex. A: IUP at term, desiring induction of labor. P: Oxytocin. Anticipate .
--- NOTE | 2023-08-31 12:14 | PM.OBPNLAB ---
Pain Control Date/time seen: 08/31/23 12:14 Starting to feel some contractions AVSS NST reactive TOCO: contractions every 2-5 min ABD soft, nontender, gravid, vertex EXT nontender Cervix /-2. IUPC placed. Continue oxytocin.
--- NOTE | 2023-08-31 14:04 | WPDANESEPP ---
Anes - Eval Pre Procedure Procedure: Labor epidural Date/Time: 08/31/23 14:04 Surgeon: Slava Preop Diagnosis: Pain during labor Pre Op Diagnosis: IOL Patient Data Age: 33 Gender: F Height: 1.63 m Weight: 86 kg Last Vital Signs Temp 36.6 C 08/31/23 11:30 Pulse 80 08/31/23 10:06 Resp 16 08/31/23 11:30 BP 120/73 08/31/23 10:06 Pulse Ox 100 08/31/23 14:00 O2 Del Method Room Air 08/31/23 06:36 Allergies Allergy/AdvReac Type Severity Reaction Status Date / Time kluti kaah Allergy Rash Verified 08/11/23 12:34 Home Medications Medication Instructions Recorded Confirmed Type prenat.vits,talia,hvo-bxaj-nmbgn 1 tablet PO DAILY 04/21/21 08/11/23 History levothyroxine 100 mcg tablet 100 mcg PO DAILY #180 tabs 02/08/23 08/11/23 Rx Laboratory Tests 08/31/23 06:13 WBC 7.7 K/mm3 (4.5-10.0) RBC 3.72 L M/mm3 (4.2-5.4) Hgb 12.1 g/dL (12.0-15.0) Hct 35.9 L % (37.0-47.0) MCV 96.5 fl (80-100) MCH 32.5 pg (26-34) MCHC 33.7 g/dl (32-36) RDW 13.5 % (11.5-14.5) Plt Count 201 k/mm3 (150-375) MPV 11.7 H fl (7.4-10.4) Immature Gran % (Auto) 0.4 % (0-0.5) Neut % (Auto) 65.9 % (45.5-73.1) Lymph % (Auto) 28.0 % (18.3-44.2) [place] % (Auto) 4.5 % (2.6-8.5) Eos % (Auto) 0.8 % (0-4.4) Baso % (Auto) 0.4 % (0.2-1.2) Lymph # (Auto) 2.16 K/mm3 (0.9-3.2) [place] # (Auto) 0.4 K/mm3 (0.1-0.6) Eos # (Auto) 0.1 K/mm3 (0-0.3) Baso # (Auto) 0.0 K/mm3 (0.0-0.1) Abs Immat Gran (auto) 0.03 K/mm3 (0.00-0.031) Absolute Neuts (auto) 5.1 K/mm3 (1.3-6.7) Absolute Nucleated RBC 0.000 K/mm3 (0.0-0.012) Nucleated RBC % 0.0 % (0.0-0.2) RPR Non-reactive (NonReactive) HIV 1&2 Ab/P24 Ag 4thGn Negative (Negative) Blood Type A Positive Antibody Screen Negative Patient hx anesthesia problems: none Family hx anesthesia problems: none Results Review: All pre-operative results and documents have been reviewed as part of the pre-operative evaluation. [facility] Past Medical History Medical History Anemia Johnathan's disease Hypothyroidism Incomplete miscarriage D&C 02/03/21 Miscarriage x1 Missed ab Osteonecrosis of knees Vitamin D deficiency Surgical History Surgical History H/O arthroscopy of knee (~2009) H/O ovarian cystectomy (~2017) History of cholecystectomy (~2009) History of dilation and curettage (~2020) 02/03/21 for missed [place] teeth removed Family History Family History Mother Diabetes mellitus Hypertension Cataract Grandparent Diabetes mellitus Acute myocardial infarction Hypertension Cerebrovascular accident Prostate carcinoma Dementia Acute rheumatic arthritis Sibling Diabetes mellitus Bipolar 1 disorder Social History Social History Smoking status: Never smoker Second hand tobacco smoke exposure: No Alcohol intake: current Drinks per week: 5 Substance use: never Last use: 7 YEARS AGO Do You Feel Safe in your Home?: Yes Lack of Transportation: No Lack of Food: Never True Current Housing: I Have Housing Concerned About Future Housing: No Difficulty Paying Gas/Electric Bills: No Difficulty Paying for Meds: No Currently Unemployed: No Education: Bachelor's Degree Difficulty w/ Childcare or Family Care: No Living arrangements: with family Occupation/Education: occupation Gender identity (if verbalized by the patient): Female Sexual Orientation (if Verbalized by the Patient): Straight or Heterosexual Spiritual care concerns: No Exam Day of Procedure 08/31/23 14:04 Patient weight: overweight Heart: regular rate and rhythm Lungs: nor
--- NOTE | 2023-08-31 16:45 | PM.OBPNLAB ---
Pain Control Date/time seen: 08/31/23 16:45 Comments: Comfortable with epidural. AVSS NST reactive TOCO: contractions every 2-3 min Cervix 6-7/80/-1 Continue labor.
[2023-08-31] MEDS: SODIUM CHLORIDE 0.9% IV 300 ML 600 ML I-UTERINE (18:28)
--- NOTE | 2023-08-31 19:30 | PM.OBPRVD ---
OB - Vaginal Delivery Note Procedure Delivery date: 08/31/23 Events: Elective Induction of Labor Induction method: Per Pitocin Protocol Delivery augmentation: Rupture of Membranes Delivery monitor: External FHT, External Uterine and Internal Uterine Route of delivery: Episiotomy description: None Laceration Description: None Specimen: Yes (cord blood) Quantitative Blood Loss (ml): 320 Anesthesia type: Epidural Disposition: PACU Complications: None Narrative: 33 y/o at 39 2/7 weeks gestation who presented to the hospital for induction of labor. Oxytocin was administered intravenously. Amniotomy was performed with return of clear fluid. She received an epidural for pain control. Her labor progressed and her cervix dilated completely. She pushed with good effort and delivered the infant's head to the perineum, followed by the body. The nose and mouth were bulb suctioned. After a delay, the cord was clamped and cut. The was handed off the field. Cord blood was collected. The placenta delivered spontaneously and was grossly normal in appearance. The usual 3 vessel cord was noted. There were no lacerations. The patient was taken to recovery room in stable condition. The went to the nursery in stable condition. I was present and scrubbed for the entire delivery. Baby Date of : 08/31/23 Time of : 19:19 Weeks of gestation at delivery: 39 Infant gender: Male presentation: vertex position: Right Occiput Anterior Placenta delivery description: Spontaneous and Normal Configuration Cord Vessel Description: 3 Vessels and Delayed Cord Clamping score one minute: 9 score five minutes: 9
--- NOTE | 2023-08-31 19:32 | PM.OBDSVD ---
DS: Admitting Diagnosis Discharge Date 09/01/23 <Pepe Zhou MD - Last Filed: 09/01/23 09:01> Admitting Diagnosis IUP at 39 2/7 weeks Favorable cervix <David Pedersen MD - Last Filed: 09/15/23 08:46> DS: Discharge Diagnosis Discharge Diagnosis (1) Normal spontaneous vaginal delivery: Code(s): O80 - Encounter for full-term uncomplicated delivery <David Pedersen MD - Last Filed: 09/15/23 08:46> Status: Acute <David Pedersen MD - Last Filed: 09/15/23 08:46> OB - DS: Summary OB Procedures : None <David Pedersen MD - Last Filed: 09/15/23 08:46> OB Procedures Intrapartum: Spontaneous Vag Delivery <David Pedersen MD - Last Filed: 09/15/23 08:46> OB Procedures: : None <David Pedersen MD - Last Filed: 09/15/23 08:46> Peripartum Data Laceration Description: None <David Pedersen MD - Last Filed: 09/15/23 08:46> Episiotomy description: None <David Pedersen MD - Last Filed: 09/15/23 08:46> Time Spent with Patient Time attestation: Total time spent providing and/or coordinating discharge services: <David Pedersen MD - Last Filed: 09/15/23 08:46> DS: Data Data Completed and Pending Labs on day of discharge: Labs from last 24 hours 08/31/23 06:13 WBC 7.7 RBC 3.72 L Hgb 12.1 Hct 35.9 L MCV 96.5 MCH 32.5 MCHC 33.7 RDW 13.5 Plt Count 201 MPV 11.7 H Immature Gran % (Auto) 0.4 Neut % (Auto) 65.9 Lymph % (Auto) 28.0 [place] % (Auto) 4.5 Eos % (Auto) 0.8 Baso % (Auto) 0.4 Lymph # (Auto) 2.16 [place] # (Auto) 0.4 Eos # (Auto) 0.1 Baso # (Auto) 0.0 Abs Immat Gran (auto) 0.03 Absolute Neuts (auto) 5.1 Absolute Nucleated RBC 0.000 Nucleated RBC % 0.0 RPR Non-reactive HIV 1&2 Ab/P24 Ag 4thGn Negative Blood Type A Positive Antibody Screen Negative <David Pedersen MD - Last Filed: 09/15/23 08:46> Discharge Plan Discharge Attending physician on discharge: David Pedersen <David Pedersen MD - Last Filed: 09/15/23 08:46> David Pedersen <Pepe Zhou MD - Last Filed: 09/01/23 09:01> Consulting providers: Neftaly Murphy; Brandy Valentine <David Pedersen MD - Last Filed: 09/15/23 08:46> Discharging Clinician: David Pedersen <David Pedersen MD - Last Filed: 09/15/23 08:46> David Pedersen <Pepe Zhou MD - Last Filed: 09/01/23 09:01> Patient Disposition: Home, Self-Care <David Pedersen MD - Last Filed: 09/15/23 08:46> Activity: no straining and pelvic rest <David Pedersen MD - Last Filed: 09/15/23 08:46> no straining and pelvic rest <Pepe Zhou MD - Last Filed: 09/01/23 09:01> Diet: regular <David Pedersen MD - Last Filed: 09/15/23 08:46> regular <Pepe Zhou MD - Last Filed: 09/01/23 09:01> Discharge Instructions: Education: Mom and Baby Guide Given to: Mother Follow-Up: Call your delivering provider's office for an appointment to be seen in: 6 Weeks Mom and baby should come to the [facility] for the follow-up appointment. Appointment Date/Time: September 11, 2023 at 11:00 am What to expect at your follow-up visit: Blood Pressure Check Call [phone] if you are unable to keep your appointment time. BREAST CARE: * Wear a snug supportive bra. * For engorgement discomfort: Breast Feeding: * Apply warm moist washcloths * Express milk as needed to relieve engorgement * Wear loose clothing Bottle Feeding: * May apply ice packs * For sore nipples: * Identify correct latch-on * Apply warm moist washcloths before and after nursing * Air dry nipples after nursing * May apply Lansinoh cream to nipples EPISIOTOMY/PERINEAL CARE: * Until bleeding stops, use your abraham bottle after urinating * Yoder
[2023-08-31] MEDS: OXYTOCIN 30 UNITS/NS 500 ML 30 UNITS/500 ML BAG 125 UNITS IV CONT (19:54)
--- NOTE | 2023-08-31 21:36 | OBPPTRN ---
Patient transferred to post room #281 via wheelchair. Support person present. Oriented to unit, room, information board, rooming in, admission packet and security measures. Patient verbalizes understanding.
[2023-09-01 05:25] VITALS: BP 114/78; PULSE 74; RESP 16; TEMP 36.7; O2SAT 100
[2023-09-01 05:25] LABS: Hematocrit 36.9 % (37.0-47.0)
--- NOTE | 2023-09-01 07:55 | WPDANLDPN2 ---
Anes-Prog Note L&D Date/Time: 09/01/23 07:55 Comfortable throughout: labor and delivery Neuraxial method: epidural Epidural/Spinal procedure site: clean & non-tender Neuro status: Neuro function grossly intact. Cardiovascular status: normal Respiratory status: normal Airway patency: baseline Mental status: baseline Post-Op hydration status: normal Vital Signs: Last Vital Signs Temp 36.7 C 09/01/23 05:25 Pulse 74 09/01/23 05:25 Resp 16 09/01/23 05:25 BP 114/78 09/01/23 05:25 Pulse Ox 100 09/01/23 05:25 O2 Del Method Room Air 09/01/23 05:25 Pain score (VAS): 0/10 I/O: Intake & Output 08/31/23 08/31/23 09/01/23 15:59 23:59 07:59 Intake Total 1000 Output Total 320 Balance 1000 -320 Post-procedural complaints: none Patient feedback: Patient satisfied with anesthetic care.
[2023-09-01] MEDS: MULTIVIT/MIN/PREN/FOL AC/IRON TABLET 1 TAB PO (08:04)
[2023-09-01 08:25] VITALS: BP 117/71; PULSE 80; RESP 16; TEMP 36.9; O2SAT 100
--- NOTE | 2023-09-01 08:59 | P.PNOB_ITS ---
OB - PN: Subj Subjective Date/time seen: 09/01/23 08:59 Patient comments: no complaints baby status: doing well and nursing well OB - PN: Obj Data Labs 09/01/23 04:27 Labs: Laboratory Results - last 24 hr 08/31/23 09/01/23 06:13 04:27 Hgb 12.0 Hct 36.9 L RPR Non-reactive OB - PN A/P Plan day: 1 Plan: routine care, discharge home and follow up 6 weeks Time Spent With Patient Time: Total time spent is greater than 50% in coordination of care (as documented) at patient's floor/unit and/or counseling patient: Time with patient: less than 15 minutes Exam Const: General: cooperative, healthy appearing and comfortable Nutritional Appearance: average body habitus Orientation/consciousness: oriented to pe rson, oriented to place and oriented to time Resp: Effort & Inspection: normal respiratory effort Cardio: Rate: regular rate Rhythm: regular rhythm Heart sounds: S1 normal heart sound present and S2 normal heart sound present GI: Inspection: normal to inspection
[2023-09-01 12:07] VITALS: BP 113/61; PULSE 71; RESP 16; TEMP 37.2; O2SAT 100
[2023-09-01] MEDS: IBUPROFEN 600 MG TABLET PO (12:20)
--- NOTE | 2023-09-01 12:40 | PC.NURSE ---
Mother verbalizes she is able to independently latch with appropriate positioning and alignment. She denies any nipple discomfort and is responsively . Observed mother latching with success and confidence. 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 Mother has breastfed her last baby successfully for 1 year, despite latch issues and a tongue tie. Mother requests 's mouth be assessed for ties; none observed. Infant can move his tongue well past his bottom lip without difficulty. Infant is currently meeting outcomes for weight, output, jaundice. Mother declines any additional assistance or education at this time. Mother is encouraged to call for assistance if her doesn?t latch, pain with latching, questions or concerns. Mother voiced understanding of information shared along with the mom/baby guide for an additional resource. Reported to the Primary RN.
[2023-09-01] MEDS: ACETAMINOPHEN 325 MG TABLET 650 MG PO (16:40)
[2023-09-01 18:50] VITALS: BP 119/69; PULSE 65; RESP 16; TEMP 36.7; O2SAT 99
[2023-09-04 11:46] VITALS: BP 122/81; PULSE 76; RESP 18; TEMP 37.1; O2SAT 100
== END 2023-09-01 20:40 | disposition home or self-care (01) | DRG 807 ==
LOC: ANHLDR 19:33 → ANHOB2 09-01 20:14 → ANHLDR 09-04 09:07 → ANHOB2 09-04 09:07
PROVIDERS: Admitting Provider Obstetrics & Gynecology; PCP Family Medicine; Visit Provider Obstetrics & Gynecology
DX: O80 Encounter for full-term uncomplicated delivery (principal); Z37.0 Single live birth; Z3A.39 39 weeks gestation of pregnancy
CPT/HCPCS: 36415; 85014; 85018; 85025; 86592; 86703; 86850; 86900; 86901; A9270; G0432; J2590; J2795; J7030; J7120

== ENCOUNTER 2023-12-22 08:09 | Outpatient (CLI) | payer BC, SELFPAY ==
--- NOTE | ~2023-12-22 | XR_ITS ---
Left Knee Technique: AP, lateral, and sunrise views were obtained. Clinical History: Pain Findings: No fracture or dislocation is seen. There is an osteochondral lesion at the inner aspect of the medial femoral condyle. Osseous alignment is anatomic. Joint spaces are preserved without degene rative or erosive change. Soft tissues are unremarkable. No joint effusion is seen. Impression: Osteochondral lesion of the medial femoral condyle, suggestive of osteochondritis dissecans lesion. C onsider follow-up MR to further evaluate. Reviewed, dictated and finalized at location M. Impression: Osteochondral lesion of the medial femoral condyle, suggestive of osteochondrit is dissecans lesion. Consider follow-up MR to further evaluate.
== END 2023-12-22 08:10 | disposition home or self-care (01) ==
PROVIDERS: PCP Family Medicine; Visit Provider Orthopaedic Surgery
DX: M93.262 Osteochondritis dissecans, left knee (principal); M25.561 Pain in right knee
CPT/HCPCS: 73564

== ENCOUNTER 2024-01-18 07:26 | Outpatient (CLI) | payer BC, SELFPAY ==
--- NOTE | ~2024-01-18 | MR_ITS ---
MRI of the left knee Clinical history: Chronic necrosis Technique: Coronal proton density and proton density-weighted images, sagittal proton-density and T2 fat-sat images, and axial proton-density fat-saturated images were acquired. Findings: Anterior and posterior cruciate ligaments are intact. Medial collateral ligament and the la teral collateral ligament complex are intact. Popliteus tendon is intact. Medial and lateral menisci are intact, without evidence of tear. There is an osteochondritis dissecans lesion at the inner aspect of the medial femoral condyle. There is mild edema subjacent to the lesion. No cystic change about the lesion. Possible tiny amount of fl uid undermining lesion. Lesion measures approximately 1.3 x 1.3 cm in size. No other osseous or reali ty seen. Extensor mechanism is intact. No joint effusion or Sandoval's cyst. 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 Reviewed, dictated and finalized at location . 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
--- NOTE | ~2024-01-18 | MR_ITS ---
MRI of the right knee Clinical history: Necrosis Technique: Coronal proton density and proton density-weighted images, sagittal proton-density and T2 fat-sat images, and axial proton-density fat-saturated images were acquired. Findings: Anterior and posterior cruciate ligaments are intact. Medial collateral ligament and the la teral collateral ligament complex are intact. Popliteus tendon is intact. Medial and lateral menisci are intact, without evidence of tear. Articular cartilage is well preserved throughout the knee. There is mild enthesopathic change at the ACL insertion region. No other bone marrow signal reality evident. Extensor mechanism is intact. No joint effusion or Sandoval's cyst. Impression: No significant abnormality. Reviewed, dictated and finalized at location . [employer]IAN Impression: No significant abnormality.
== END 2024-01-18 07:27 | disposition home or self-care (01) ==
PROVIDERS: PCP Family Medicine; Visit Provider Orthopaedic Surgery
DX: M93.262 Osteochondritis dissecans, left knee (principal); M95.8 Other specified acquired deformities of musculoskeletal system; M25.361 Other instability, right knee; M25.362 Other instability, left knee
CPT/HCPCS: 73721